=== PATIENT | male | born 1965 | race Caucasian/White ===

== ENCOUNTER 2019-11-07 00:07 | Emergency (ER) | payer BC ==
[~2019-11-07] VITALS: Ht 172.7 cm; Wt 77.0 kg
[~2019-11-07 00:07] MED LIST: BACLOFEN10 MG PO; BACTRIM DS1 TAB PO; BYSTOLIC5 MG PO; CIPROFLOXACN500 MG PO; CLINDAMYCIN300 M1 PO; DIOVAN40 MG PO; NAPROSYN500 MG PO; ULTRAM50 M1 PO; ULTRAM50 MG OR
[2019-11-07] MEDS ORDERED: CIPROFLOXACN500 MG PO (00:59)
[2019-11-07] MEDS ORDERED: BACTRIM DS1 TAB PO (00:59)
[2019-11-07 01:25] VITALS: BP 115/75
== END 2019-11-07 01:25 | disposition home or self-care (01) | DRG 558 ==
LOC: ED 00:07
DX: M70.21 Olecranon bursitis, right elbow (principal); I10 Essential (primary) hypertension; F17.290 Nicotine dependence, other tobacco product, uncomplicated; Z86.14 Personal history of Methicillin resistant Staphylococcus aureus infection

== ENCOUNTER 2020-10-09 02:53 | Emergency (ER) | payer SELFPAY ==
[~2020-10-09] VITALS: Ht 172.7 cm; Wt 75.0 kg
[2020-10-09 04:50] LABS: HEMATOCRIT 36.9 % (39.0-50.0); IMMATURE GRANULOCYTES 0.3 % (0.0-5.0); MEAN CELL VOLUME 96.3 fL CALC (80.0-100.0); MEAN CORPUSCULAR HGB 31.6 pG CALC (26.0-32.0); MEAN CORPUSCULAR HGB CONC 32.8 g/dL CAL (32.0-36.0); NEUT# 7.49 thou/uL (1.82-7.42); RED BLOOD COUNT 3.83 mill/uL (4.70-6.10); RED CELL DISTRI WIDTH 12.7 % (11.5-15.5)
[2020-10-09 04:53] LABS: HEMOGLOBIN 12.1 g/dl (14.0-18.0)
[2020-10-09 05:08] LABS: ALBUMIN 4.2 g/dL (3.2-5.0); ALKALINE PHOSPHATASE 70 u/l (38-126); ANION GAP 10 (6-22 (CALC)); BUN 21 mg/dL (9-20); BUN/CREATININE RATIO 21 (12-20 (CALC)); CARBON DIOXIDE 27 mmol/l (22-30); CHLORIDE 103 mmol/l (95-108); GFR > 60 ML/MIN (>=60 (CALC)); GFR FOR AFR.AMER. > 60 ML/MIN (>=60 (CALC)); SGOT/AST 27 u/l (17-59); SODIUM 137 mmol/l (137-146); TOTAL PROTEIN 7.6 g/dL (6.3-8.2)
[2020-10-09 05:09] LABS: BILIRUBIN, TOTAL 0.4 mg/dL (0.0-1.4)
[2020-10-09 06:55] VITALS: BP 127/79
== END 2020-10-09 06:55 | DRG 155 ==
LOC: ED 02:53
PROVIDERS: Emergency Medicine
DX: S08.122A Partial traumatic amputation of left ear, initial encounter (principal); S00.01XA Abrasion of scalp, initial encounter; S21.252A Open bite of left back wall of thorax without penetration into thoracic cavity, initial encounter; S21.152A Open bite of left front wall of thorax without penetration into thoracic cavity, initial encounter; I10 Essential (primary) hypertension; F17.200 Nicotine dependence, unspecified, uncomplicated; Y04.1XXA Assault by human bite, initial encounter; Y00.XXXA Assault by blunt object, initial encounter; Y92.009 Unspecified place in unspecified non-institutional (private) residence as the place of occurrence of the external cause; Z86.14 Personal history of Methicillin resistant Staphylococcus aureus infection
CPT/HCPCS: J0131; J1956